=== PATIENT | female | born 1965 | race Hispanic/Latino ===

== ENCOUNTER 2020-07-31 14:17 | Observation (INO) | payer BC ==
[2020-07-31 17:57] VITALS: BMI 25.7
--- NOTE | 2020-07-31 18:28 | ER ---
Nurse's Notes [facility] – [place], [place] Name: Andreina Clemens Age: 54 yrs Sex: Female : 1965 Arrival Date: 07/31/2020 Time: 14:18 Bed External Waiting Private MD: Diagnosis: Need for blood transfusion Presentation: 07/31 15:35 Chief complaint: Patient states: Dr. Pederson sent her over for a blood transfusion, iw Hgb was 5, was told she needed like six pints of blood. Coronavirus screen: At this time, the client does not indicate any symptoms associated with coronavirus-19. Ebola Screen: Patient negative for fever greater than or equal to 101.5 degrees Fahrenheit, and additional compatible Ebola Virus Disease symptoms Patient denies exposure to infectious person. Patient denies travel to an Ebola-affected area in the 21 days before illness onset. No symptoms or risks identified at this time. Initial Sepsis Screen: Does the patient meet any 2 criteria? No. Patient's initial sepsis screen is negative. Does the patient have a suspected source of infection? No. Patient's initial sepsis screen is negative. Risk Assessment: Do you want to hurt yourself or someone else? Patient reports no desire to harm self or others. Onset of symptoms was July 31, 2020. 15:35 Method Of Arrival: Ambulatory iw 15:35 Acuity: SCOTT 2 iw Historical: - Allergies: 15:37 PENICILLINS; iw - Home Meds: 15:37 Xarelto oral oral [Active]; iw - PMHx: 15:37 blood clots; Anemia; low iron; iw - PSHx: 15:37 None; iw Assessment: 16:00 Reassessment: pt not in lobby, attempted to call cell phone, no answer. iw Vital Signs: 15:35 BP 123 / 65; Pulse 82; Resp 16; Temp 97.8; Pulse Ox 100% on R/A; iw ED Course: 14:18 Patient arrived in ED. as 15:36 Triage completed. iw 16:11 Arm band placed on. jd3 18:27 Timi Lopez MD is Hospitalizing Provider. aa5 18:28 Timi Lopez MD is Attending Physician. aa5 Administered Medications: No medications were administered Outcome: 17:00 Decision to Hospitalize by Provider. aa5 17:00 Patient left the ED. aa5 17:00 Admitted to Med/surg accompanied by tech, via wheelchair. aa5 Signatures: [place] Irene, RN RN Clementine Hood RN RN [id number] Jhonny Davis RN RN jd3 Corrections: (The following items were deleted from the chart) 18:28 18:27 Decision to Hospitalize by Provider. aa5 aa5 18:28 18:28 Patient left the ED. aa5 aa5
[2020-07-31] MEDS ORDERED: NA CHLORIDE 0.9% 500 ML ONE ×2 (19:27→23:13)
[2020-07-31 21:16] VITALS: TEMP 98.3
[2020-08-01 02:09] VITALS: BP 116/63
[2020-08-01 04:27] VITALS: O2SAT 100
[2020-08-01 05:11] LABS: Hematocrit 24.4 % (36.0-45.0)
--- NOTE | 2020-08-06 23:31 | P.HP ---
Certification for Inpatient Patient admitted to: Observation With expected LOS: <2 Midnights Patient will require the following post-hospital care: None Practitioner: I am a practitioner with admitting privileges, knowledge of patient current condition, hospital course, and medical plan of care. Services: Services provided to patient in accordance with Admission requirements found in Title 42 Section 412.3 of the Code of Federal Regulations Patient History Date of Service: 07/31/20 Reason for admission: Anemia History of Present Illness: Patient is a 54-year-old female who was sent from hematology office for a blood transfusion. Patient's hemoglobin was 5.0. They advised patient To go to the emergency room for blood transfusion. She will be admitted and we will give patient 2 units of packed red blood cells. Allergies No Known Allergies Allergy (Unverified 07/31/20 17:07) Home Medications: Cholecalciferol (Vitamin D3) [Vitamin D3] 500 mcg PO DAILY 07/31/20 Ferrous Sulfate [Iron] 325 mg PO DAILY 07/31/20 Mecobalamin [B12 Active] 1,000 mcg PO DAILY 07/31/20 Rivaroxaban [Xarelto] 20 mg PO DAILY 07/31/20 - Past Medical/Surgical History Diabetic: No -: leg blood clots -: hernia repair 2012 -: gastric bypass 2012 - Family History Father Medical History: Stroke, Cancer Notes: liver cancer Mother Medical History: Diabetes Brother Medical History: Heart disease Notes: heart attacks - Social History Smoking Status: Never smoker Alcohol use: No CD- Drugs: No Caffeine use: No Place of Residence: Home Review of Systems 10-point ROS is otherwise unremarkable Physical Examination - Vital Signs Temperature: 98.3 F Blood Pressure: 116/63 Pulse: 84 Respirations: 18 Pulse Ox (%): 98 - Physical Exam General: Alert, In no apparent distress, Oriented x3 HEENT: Atraumatic, PERRLA, Mucous membr. moist/pink, Other (Conjunctiva pallor ), EOMI, Sclerae nonicteric Neck: Supple, 2+ carotid pulse no bruit, No LAD, Without JVD or thyroid abnormality Respiratory: Clear to auscultation bilaterally, Normal air movement Cardiovascular: Regular rate/rhythm, Normal S1 S2 Gastrointestinal: Normal bowel sounds, No tenderness Musculoskeletal: No tenderness Integumentary: No rashes Neurological: Normal gait, Normal speech, Normal strength at 5/5 x4 extr, Normal tone, Sensation intact, Cranial nerves 3-12 intact, Normal affect Lymphatics: No axilla or inguinal lymphadenopathy Assessment & Plan - Problems (Diagnosis) (1) Anemia Status: Acute Qualifiers: Anemia type: iron deficiency - Plan Plan: 1. Transfuse 2 units of packed red blood cells and repeat H and H. 2. Outpatient iron and B12 and folic acid Discharge Plan: Home Plan to discharge in: 24 Hours - Advance Directives Does patient have a Living Will: No Does patient have a Durable POA for Healthcare: No - Code Status/Comfort Care Code Status Assessed: Yes Code Status: Full Code Critical Care: No Time Spent Managing PTS Care (In Minutes): 35
--- NOTE | 2020-08-06 23:35 | P.DS ---
Discharge Date: 08/01/20 Disposition: ROUTINE DISCHARGE Discharge Condition: GOOD Reason for Admission: Anemia - Problems (1) Anemia Status: Acute Qualifiers: Anemia type: iron deficiency Brief History of Present Illness: Patient is a 54-year-old female who was sent from hematology office for a blood transfusion. Patient's hemoglobin was 5.0. They advised patient To go to the emergency room for blood transfusion. She will be admitted and we will give patient 2 units of packed red blood cells. Hospital Course: Patient was given 2 units of packed red blood cells. Hemoglobin of 7.5. At this time, patient is stable for discharge home. Vital Signs/Physical Exam: Temp Pulse Resp BP Pulse Ox 98.3 F 84 18 116/63 98 08/06/20 23:32 08/06/20 23:32 08/06/20 23:32 08/06/20 23:32 08/06/20 23:32 General: Alert, In no apparent distress, Oriented x3 Laboratory Data at Discharge: WBC Cancelled 07/31/20 17:11 Hgb 7.5 g/dL (12.0-15.0) L* 08/01/20 04:08 Hct 24.4 % (36.0-45.0) L D 08/01/20 04:08 Plt Count Cancelled 07/31/20 17:11 Sodium Cancelled 07/31/20 17:11 Potassium Cancelled 07/31/20 17:11 BUN Cancelled 07/31/20 17:11 Creatinine Cancelled 07/31/20 17:11 Glucose Cancelled 07/31/20 17:11 Home Medications: Cholecalciferol (Vitamin D3) [Vitamin D3] 500 mcg PO DAILY 07/31/20 Ferrous Sulfate [Iron] 325 mg PO DAILY 07/31/20 Mecobalamin [B12 Active] 1,000 mcg PO DAILY 07/31/20 Rivaroxaban [Xarelto] 20 mg PO DAILY 07/31/20 Physician Discharge Instructions: -OK TO DC IV AND DC HOME -FOLLOW-UP WITH PCP IN 1-2 WEEKS -FOLLOW-UP WITH Hematology IN 1-2 WEEKS -PLEASE MAKE SURE ALL DIAGNOSTIC STUDIES ARE AVAILABLE AND HAVE BEEN REVIEWED WITH PATIENT PRIOR TO DISCHARGE -RETURN TO THE ER IF Symptoms worsen -CALL DR. BURTON AT [phone] IF ANY QUESTIONS REGARDING HOSPITAL STAY Diet: AHA Activity: Fall precautions Followup: Torie Wtaers MD [Primary Care Provider] - Time spent managing pt's care (in minutes): 35
== END 2020-08-01 05:35 | disposition home or self-care (01) ==
LOC: ER 14:17 → 2ND-WC 16:32
PROVIDERS: ADMIT Hospitalist; ATTEND Hospitalist
PROC: 30233N1 Transfusion of Nonautologous Red Blood Cells into Peripheral Vein, Percutaneous Approach (ICD-10-PCS; principal; 2020-07-31)
DX: D50.9 Iron deficiency anemia, unspecified (principal); Z79.01 Long term (current) use of anticoagulants; Z88.0 Allergy status to penicillin; Z98.84 Bariatric surgery status; Z82.3 Family history of stroke; Z80.0 Family history of malignant neoplasm of digestive organs; Z83.3 Family history of diabetes mellitus; Z82.49 Family history of ischemic heart disease and other diseases of the circulatory system
CPT/HCPCS: 36415; 86900; 86850; 86901; 85018; 85014; 99281; 36430; P9016 ×2; J7040 ×2; G0378 ×3